=== PATIENT | male | born 1955 | race Caucasian/White ===

== ENCOUNTER 2016-08-26 19:49 | Emergency (ER) | payer OTHER ==
[~2016-08-26] VITALS: Ht 177.8 cm; Wt 126.1 kg
[~2016-08-26 19:49] MED LIST: Ambien PO; COLACE100 MG PO; Celexa PO; DUONEB3 ML IH; FLORA-Q CAPSUL1 EACH PO; HYCODAN SYRUP5 ML PO; K-LOR,KLOR-CON20 MEQ PO; LACTINEX,FLO1 PACKET PO; LOVENOX40 MG/0.4 SC; MITRAZOL POWDER30 GM TP; MOTRIN800 MG PO; Maalox, Mylanta PO; NOHOMEMEDS; PERCOCET 5/31 TABLET PO; PROTONIX40 MG PO; Robitussin DM PO; Tylenol Regular Stre PO; Tylenol W/ Codeine PO; Xanax PO; Zantac PO
[2016-08-26 21:25] VITALS: BP 110/87
== END 2016-08-26 21:25 | disposition home or self-care (01) ==
LOC: EME 19:49
DX: S63.502A Unspecified sprain of left wrist, initial encounter (principal); X50.0XXA Overexertion from strenuous movement or load, initial encounter; Y93.H2 Activity, gardening and landscaping; Z86.73 Personal history of transient ischemic attack (TIA), and cerebral infarction without residual deficits
CPT/HCPCS: 73110; 99281; 99283